=== PATIENT | male | born 1955 | race Caucasian/White ===

== ENCOUNTER 2022-07-12 04:17 | Day surgery (SDC) | payer OTHER ==
[2022-07-11 10:59] VITALS: BMI 28.2
[2022-07-12 08:20] VITALS: RESP 18
[2022-07-12 14:23] VITALS: BP 129/83; PULSE 71; TEMP 98
== END 2022-07-12 09:50 | disposition home or self-care (01) ==
LOC: JASU-ENDO 04:17
PROVIDERS: ATTEND Internal Medicine Gastroenterology
PROC: 0DBL8ZX Excision of Transverse Colon, Via Natural or Artificial Opening Endoscopic, Diagnostic (ICD-10-PCS; 2022-07-12)
PROC: 0DBN8ZX Excision of Sigmoid Colon, Via Natural or Artificial Opening Endoscopic, Diagnostic (ICD-10-PCS; 2022-07-12)
PROC: 0DBP8ZX Excision of Rectum, Via Natural or Artificial Opening Endoscopic, Diagnostic (ICD-10-PCS; principal; 2022-07-12 08:30)
DX: Z12.11 Encounter for screening for malignant neoplasm of colon (principal); D12.5 Benign neoplasm of sigmoid colon; D12.3 Benign neoplasm of transverse colon; K62.1 Rectal polyp; K64.8 Other hemorrhoids
CPT/HCPCS: 82962; 88305-TC

== ENCOUNTER 2024-05-20 17:18 | Emergency (ER) | payer OTHER ==
[2024-05-20 17:24] VITALS: BP 173/109; PULSE 97; RESP 20; TEMP 98; BMI 27.9
[2024-05-20] MEDS ORDERED: ACETAMINOPHEN 325 MG TABLET (FP) ONE (18:22)
[2024-05-20] MEDS ORDERED: METOCLOPRAMIDE HCL INJECTION 10 MG/2 ML VIAL ONE (18:22)
[2024-05-20] MEDS: ACETAMINOPHEN 500 MG TABLET (FP) PO ONE (18:41)
[2024-05-20] MEDS: METOCLOPRAMIDE HCL INJECTION 10 MG/2 ML VIAL IVPB ONE (18:41)
[2024-05-20] MEDS: SODIUM CHLORIDE 1,000 ML IV STA (18:42)
[2024-05-20 19:12] LABS: BASO % 0.5 % (0-2.0); HEMATOCRIT 40.3 % (35.4-49); HEMOGLOBIN 13.5 GM/dL (11.7-16.9); LYMPH % 25.5 % (8-40); MCH 30.8 pg (25.7-33.7); MCHC 33.6 g/dl (32.0-35.9); MEAN CELL VOLUME 91.7 fl (80-96); MEAN PLT VOLUME 8.2 fl (7.5-11.1); MONO % 12.7 % (3.8-10.2); NEUT % 58.3 % (42.8-82.8); PLATELET COUNT 225 10^3/uL (134-434); RDW 13.7 % (11.9-15.9)
[2024-05-20 19:26] LABS: POTASSIUM 3.8 mmol/L (3.5-5.1)
[2024-05-20 19:29] LABS: ALBUMIN 3.5 g/dl (3.4-5.0); BLOOD UREA NITROGEN 34.7 mg/dL (7-18); MAGNESIUM 2.1 mg/dL (1.8-2.4)
[2024-05-20 19:31] LABS: INR 0.99 (0.83-1.09); PROTHROMBIN TIME (PATIENT) 10.8 SEC (9.7-13.0)
[2024-05-20 19:32] LABS: CREATININE 2.1 mg/dL (0.55-1.3)
[2024-05-20 19:33] LABS: BILIRUBIN,TOTAL 0.4 mg/dL (0.2-1)
[2024-05-20 19:34] LABS: ACTIVATED PTT 28.2 SECONDS (25.2-36.5); TOT PROT 6.9 g/dl (6.4-8.2)
[2024-05-20] MEDS: SODIUM CHLORIDE 0.9% 500 ML INFUS.BAG IV ONE (20:38)
[2024-05-20 22:23] LABS: POTASSIUM 3.9 mmol/L (3.5-5.1)
[2024-05-20 22:25] LABS: BLOOD UREA NITROGEN 31.5 mg/dL (7-18)
[2024-05-20 22:29] LABS: CREATININE 2.1 mg/dL (0.55-1.3)
== END 2024-05-20 23:15 | disposition left against medical advice (07) ==
LOC: JER 17:18
PROC: 3E033GC Introduction of Other Therapeutic Substance into Peripheral Vein, Percutaneous Approach (ICD-10-PCS; principal; 2024-05-20)
PROC: 3E0337Z Introduction of Electrolytic and Water Balance Substance into Peripheral Vein, Percutaneous Approach (ICD-10-PCS; 2024-05-20)
DX: R51.9 Headache, unspecified (principal); R79.89 Other specified abnormal findings of blood chemistry; N17.9 Acute kidney failure, unspecified; R29.898 Other symptoms and signs involving the musculoskeletal system; R20.0 Anesthesia of skin; H53.142 Visual discomfort, left eye; Z20.822 Contact with and (suspected) exposure to COVID-19
CPT/HCPCS: 0241U-QW; 36415; 70450-TC; 80048; 80053; 83735; 84484; 85025; 85610; 85730; 93005; 93010; 99285-25